=== PATIENT | male | born 1985 | race Asian ===

== ENCOUNTER → 2016-09-18 | Outpatient (CLI) | payer OTHER ==
[~2016-09-18] MED LIST: NOTE:
--- NOTE | 2016-09-18 08:15 | DIAGNOSTIC IMAGING REPORT ---
MRI OF THE LEFT KNEE WITHOUT CONTRAST CLINICAL HISTORY: Acute left knee pain following injury. COMPARISON STUDY: None. TECHNIQUE: Utilizing a 1.5 Vanda magnet and dedicated coil, multiplanar, multiecho imaging of the left knee was performed without intravenous or intraarticular contrast. FINDINGS: Alignment of the left knee is anatomic. The extensor mechanism is intact. There is a small left knee joint effusion. There is no marrow edema or marrow replacement. No fracture is identified. There is no meniscal tear. No cartilage abnormality is present within the left knee. The anterior cruciate ligament is intact. There is increased signal and enlargement of the mid to distal posterior cruciate ligament consistent with a PCL tear which is near full-thickness. Several fibers appear to be intact. The medial collateral ligament and lateral collateral ligament complex are intact. No mass or fluid collection is shown adjacent to the left knee. IMPRESSION: 1. High-grade partial-thickness PCL tear. 2. Small left knee joint effusion. 3. No meniscal tear. Electronically signed by: Francois Gibbs M.D. 09/18/2016 8:14 AM Dictated Date/Time: 09/18/2016 8:06 AM
== END | disposition home or self-care (01) ==
LOC: C.MRI 06:49
PROVIDERS: ATTEND Internal Medicine
DX: S83.522A Sprain of posterior cruciate ligament of left knee, initial encounter (principal); X58.XXXA Exposure to other specified factors, initial encounter